=== PATIENT | male | born 1970 | race Caucasian/White ===

== ENCOUNTER 2017-06-18 09:25 | Inpatient (IN) | payer MEDICAID, OTHER ==
[2017-06-18] MEDS: SOD CHLORIDE 0.9% 1,000 ML IV (12:28)
[2017-06-18] MEDS: CEFTRIAXONE 1 GM/50 ML (PMX) 50 ML IVPB ×2 (12:28→16:24)
[2017-06-18 12:45] LABS: ABNORMAL IP MESSAGE 1; HEMATOCRIT 29.8 % (42.0-52.0); HEMOGLOBIN 9.3 g/dl (14.0-18.0); MEAN CORPUSCULAR HEMOGLOBIN 23.4 pg (29.0-33.0); MEAN CORPUSCULAR HGB CONC 31.2 g/dl (32.0-37.0); MEAN CORPUSCULAR VOLUME 74.9 fl (82.0-101.0); MEAN PLATELET VOLUME 9.1 fl (7.4-10.4); PLATELET COUNT 704 10^3/UL (140-415); POSITIVE DIFF @See below; RED BLOOD COUNT 3.98 10^6/ul (4.70-6.10)
[2017-06-18 12:45] LABS: WHITE BLOOD COUNT 25.7 10^3/ul (4.8-10.8)
[2017-06-18] MEDS ORDERED: ACETAMINOPHEN 325 MG TAB PO (13:00)
[2017-06-18] MEDS ORDERED: ONDANSETRON 4 MG INJ IV ×2 (13:00→14:00)
[2017-06-18 13:03] LABS: ADD MAN DIFF? YES; PARTIAL THROMBOPLASTIN TIME 47.4 Sec (25.0-35.0)
[2017-06-18 13:05] LABS: ANION GAP 17 (8-16); BLOOD UREA NITROGEN 12 mg/dl (7-20); CALCIUM 9.6 mg/dl (8.4-10.2); CARBON DIOXIDE 28 mmol/L (21-31); CHLORIDE 96 mmol/L (97-110); CREATININE 0.66 mg/dl (0.61-1.24); GLUCOSE 178 mg/dl (70-220); POTASSIUM 3.9 mmol/L (3.5-5.1); SODIUM 137 mmol/L (135-144)
[2017-06-18 13:06] LABS: LACTIC ACID 1.5 mmol/L (0.5-2.0)
[2017-06-18 13:23] LABS: INR 1.27; PROTIME 16.1 Sec (11.9-14.9); PT RATIO 1.3
[2017-06-18 13:24] LABS: ANISOCYTOSIS 1+ (0-0); BAND NEUTROPHILS #M 0.5 10^3/ul (0.0-0.6); BAND NEUTROPHILS % (M) 2 % (0-4); EOSINOPHILS % (M) 3 % (0-7); GIANT THROMBO% (M) 1 % (0-0); LYMPHOCYTES #M 3.3 10^3/ul (0.8-2.9); LYMPHOCYTES % (M) 13 % (15-51); MICROCYTOSIS 1+ (0-0); MONOCYTE #M 0.7 10^3/ul (0.3-0.9); MONOCYTES % (M) 3 % (0-11); MYELOCYTES #M 0.2 10^3/ul (0.0-0.0); MYELOCYTES % (M) 1 % (0-0); PLATELET ESTIMATE INCREASED; POLYCHROMASIA 1+ (0-0); SEG NEUT #M 20.2 10^3/ul (1.6-7.5); SEGMENTED NEUTROPHILS (M) % 78 % (39-77)
[2017-06-18] MEDS: AZITHROMYCIN 500MG/NS (PMX) 250 ML IVPB ×2 (13:44→16:25)
[2017-06-18] MEDS: SOD CHLORIDE 0.9% 100 ML (14:22)
[2017-06-18] MEDS: IOHEXOL 300MG/ML 150 ML BTL (14:23)
[2017-06-18] MEDS: BARIUM SULF 2% 450 ML BTL (BERRY SMOOTHIE) PO (16:30)
[2017-06-18 17:49] LABS: CARCINOEMBRYONIC ANTIGEN 2.3 ng/ml (0.0-5.0)
[2017-06-18 17:53] LABS: CANCER ANTIGEN 19-9 2.2 U/ml (0.0-37.0)
[2017-06-18] MEDS: GUAIFENESIN 20 MG/ML 5ML CUP PO ×2 (18:02→21:42)
[2017-06-18] MEDS ORDERED: LEVALBUTEROL (NEB) 0.63 MG/3 ML AMP HHN (22:00)
[2017-06-18] MEDS ORDERED: IPRATROPIUM (NEB) 0.5 MG/2.5 ML AMP HHN (22:00)
[2017-06-18] MEDS: LEVALBUTEROL (NEB) 0.63 MG/3 ML AMP HHN (22:03)
[2017-06-18] MEDS: IPRATROPIUM (NEB) 0.5 MG/2.5 ML AMP HHN (22:03)
[2017-06-19 06:24] LABS: ADD MAN DIFF? NO
[2017-06-19 06:32] LABS: WHITE BLOOD COUNT 26.2 10^3/ul (4.8-10.8)
[2017-06-19 06:32] LABS: ABNORMAL IP MESSAGE 1; BASOPHIL # 0.1 10^3/ul (0.0-0.1); BASOPHILS % 0.4 % (0.0-2.0); EOSINOPHILS # 0.6 10^3/ul (0.0-0.5); EOSINOPHILS % 2.3 % (0.0-7.0); HEMATOCRIT 27.7 % (42.0-52.0); HEMOGLOBIN 8.4 g/dl (14.0-18.0); LYMPHOCYTES # 2.4 10^3/ul (0.8-2.9); LYMPHOCYTES % 9.2 % (15.0-51.0); MEAN CORPUSCULAR HEMOGLOBIN 23.1 pg (29.0-33.0); MEAN CORPUSCULAR HGB CONC 30.3 g/dl (32.0-37.0); MEAN CORPUSCULAR VOLUME 76.1 fl (82.0-101.0); MEAN PLATELET VOLUME 9.2 fl (7.4-10.4); MONOCYTE # 1.6 10^3/ul (0.3-0.9); MONOCYTES % 6.2 % (0.0-11.0); NEUTROPHIL # 21.3 10^3/ul (1.6-7.5); NEUTROPHILS % 81.2 % (39.0-77.0); PLATELET COUNT 621 10^3/UL (140-415); POSITIVE DIFF @See below; RED BLOOD COUNT 3.64 10^6/ul (4.70-6.10); RED CELL DISTRIBUTION WIDTH 17.2 % (11.5-14.5)
[2017-06-19 06:44] LABS: INR 1.21; PROTIME 15.5 Sec (11.9-14.9); PT RATIO 1.2
[2017-06-19 06:45] LABS: PARTIAL THROMBOPLASTIN TIME 46.5 Sec (25.0-35.0)
[2017-06-19 06:55] LABS: IRON 22 ug/dl (35-150)
[2017-06-19 07:05] LABS: % IRON SATURATION 10 % SAT (22-52); TOTAL IRON BINDING CAPACITY 217 ug/dl (241-421)
[2017-06-19 08:10] LABS: ANION GAP 15 (8-16); BLOOD UREA NITROGEN 8 mg/dl (7-20); CALCIUM 9.1 mg/dl (8.4-10.2); CARBON DIOXIDE 29 mmol/L (21-31); CHLORIDE 97 mmol/L (97-110); CHOL/HDL RATIO 5.1 RATIO; CHOLESTEROL 114 mg/dl (100-200); CREATININE 0.63 mg/dl (0.61-1.24); GLUCOSE 147 mg/dl (70-220); HDL CHOLESTEROL 22 mg/dl (27-67); LDL CHOLESTEROL,CALCULATED 76 mg/dl; MAGNESIUM 1.9 mg/dl (1.7-2.5); PHOSPHORUS 4.8 mg/dl (2.5-4.9); POTASSIUM 4.4 mmol/L (3.5-5.1); SODIUM 137 mmol/L (135-144); TRIGLYCERIDES 80 mg/dl (0-149)
[2017-06-19 08:54] LABS: ALANINE AMINOTRANSFERASE 30 IU/L (13-69); ALBUMIN 3.4 g/dl (3.3-4.9); ALKALINE PHOSPHATASE 243 IU/L (42-121); ASPARTATE AMINO TRANSFERASE 31 IU/L (15-46); BILIRUBIN,INDIRECT 0.2 mg/dl (0-1.1); BILIRUBIN,TOTAL 0.2 mg/dl (0.2-1.3); TOTAL PROTEIN 8.2 g/dl (6.1-8.1)
[2017-06-19 10:03] LABS: ADD UMIC NO; UR ASCORBIC ACID NEGATIVE (NEGATIVE); UR BILIRUBIN (Dip) NEGATIVE (NEGATIVE); UR BLOOD (Dip) NEGATIVE (NEGATIVE); UR CLARITY CLEAR (CLEAR); UR COLOR YELLOW (YELLOW); UR GLUCOSE (Dip) NEGATIVE (NEGATIVE); UR KETONES (Dip) NEGATIVE (NEGATIVE); UR LEUKOCYTE ESTERASE (Dip) NEGATIVE Leu/ul (NEGATIVE); UR NITRITE (Dip) NEGATIVE (NEGATIVE); UR SPECIFIC GRAVITY (Dip) 1.013 (1.003-1.030); UR TOTAL PROTEIN (Dip) NEGATIVE (NEGATIVE); UR UROBILINOGEN (Dip) 2+ mg/dL (NEGATIVE)
[2017-06-19 10:29] LABS: AMPHETAMINE/METHAMPHETAMINE Positive (NEGATIVE); BARBITURATES Negative (NEGATIVE); BENZODIAZEPINES Negative (NEGATIVE); CANNABINOIDS Negative (NEGATIVE); COCAINE Negative (NEGATIVE); OPIATES Negative (NEGATIVE)
[2017-06-19] MEDS: SOD CHLORIDE 0.9% 100 ML (11:55)
[2017-06-19] MEDS: IOHEXOL 300MG/ML 150 ML BTL (11:55)
[2017-06-19] MEDS: AZITHROMYCIN 500MG/NS (PMX) 250 ML IVPB ×2 (14:00→17:49)
[2017-06-19] MEDS: CEFTRIAXONE 1 GM/50 ML (PMX) 50 ML IVPB (14:04)
[2017-06-19] MEDS: GUAIFENESIN 20 MG/ML 5ML CUP PO ×2 (14:04→17:49)
[2017-06-19] MEDS: SOD FERRIC GLUC COMPLX 125 MG in SOD CHLORIDE 0.9% 100 ML IVPB (17:49)
[2017-06-19] MEDS: ACETAMINOPHEN 325 MG TAB PO (21:20)
[2017-06-20 06:09] LABS: ADD MAN DIFF? NO
[2017-06-20 06:19] LABS: ABNORMAL IP MESSAGE 1; BASOPHIL # 0.1 10^3/ul (0.0-0.1); BASOPHILS % 0.4 % (0.0-2.0); EOSINOPHILS # 0.6 10^3/ul (0.0-0.5); EOSINOPHILS % 2.7 % (0.0-7.0); HEMATOCRIT 27.4 % (42.0-52.0); HEMOGLOBIN 8.4 g/dl (14.0-18.0); LYMPHOCYTES # 2.2 10^3/ul (0.8-2.9); LYMPHOCYTES % 9.1 % (15.0-51.0); MEAN CORPUSCULAR HEMOGLOBIN 23.3 pg (29.0-33.0); MEAN CORPUSCULAR HGB CONC 30.7 g/dl (32.0-37.0); MEAN CORPUSCULAR VOLUME 75.9 fl (82.0-101.0); MONOCYTE # 1.5 10^3/ul (0.3-0.9); MONOCYTES % 6.4 % (0.0-11.0); NEUTROPHIL # 18.9 10^3/ul (1.6-7.5); NEUTROPHILS % 80.5 % (39.0-77.0); PLATELET COUNT 647 10^3/UL (140-415); POSITIVE DIFF @See below; RED BLOOD COUNT 3.61 10^6/ul (4.70-6.10)
[2017-06-20 06:19] LABS: WHITE BLOOD COUNT 23.5 10^3/ul (4.8-10.8)
[2017-06-20 08:11] LABS: ANION GAP 19 (8-16); BLOOD UREA NITROGEN 11 mg/dl (7-20); CALCIUM 9.2 mg/dl (8.4-10.2); CARBON DIOXIDE 29 mmol/L (21-31); CHLORIDE 97 mmol/L (97-110); CREATININE 0.61 mg/dl (0.61-1.24); GLUCOSE 172 mg/dl (70-220); POTASSIUM 4.9 mmol/L (3.5-5.1); SODIUM 140 mmol/L (135-144)
[2017-06-20] MEDS: AZITHROMYCIN 500MG/NS (PMX) 250 ML IVPB (13:55)
[2017-06-20] MEDS: CEFTRIAXONE 1 GM/50 ML (PMX) 50 ML IVPB (13:55)
[2017-06-20] MEDS: SOD FERRIC GLUC COMPLX 125 MG in SOD CHLORIDE 0.9% 100 ML IVPB (17:43)
[2017-06-20] MEDS: ACETAMINOPHEN 325 MG TAB PO (17:47)
[2017-06-21] MEDS: ACETAMINOPHEN 325 MG TAB PO ×2 (02:00→21:35)
[2017-06-21 05:36] LABS: ADD MAN DIFF? NO
[2017-06-21 05:39] LABS: WHITE BLOOD COUNT 25.2 10^3/ul (4.8-10.8)
[2017-06-21 05:39] LABS: ABNORMAL IP MESSAGE 1; BASOPHIL # 0.1 10^3/ul (0.0-0.1); BASOPHILS % 0.5 % (0.0-2.0); EOSINOPHILS # 0.7 10^3/ul (0.0-0.5); EOSINOPHILS % 2.6 % (0.0-7.0); HEMATOCRIT 29.9 % (42.0-52.0); HEMOGLOBIN 9.1 g/dl (14.0-18.0); LYMPHOCYTES # 2.5 10^3/ul (0.8-2.9); LYMPHOCYTES % 9.9 % (15.0-51.0); MEAN CORPUSCULAR HEMOGLOBIN 23.4 pg (29.0-33.0); MEAN CORPUSCULAR HGB CONC 30.4 g/dl (32.0-37.0); MEAN CORPUSCULAR VOLUME 76.9 fl (82.0-101.0); MEAN PLATELET VOLUME 9.1 fl (7.4-10.4); MONOCYTE # 1.2 10^3/ul (0.3-0.9); MONOCYTES % 4.9 % (0.0-11.0); NEUTROPHIL # 20.5 10^3/ul (1.6-7.5); NEUTROPHILS % 81.5 % (39.0-77.0); PLATELET COUNT 689 10^3/UL (140-415); POSITIVE DIFF @See below; RED BLOOD COUNT 3.89 10^6/ul (4.70-6.10); RED CELL DISTRIBUTION WIDTH 17.2 % (11.5-14.5)
[2017-06-21 06:34] LABS: ANION GAP 16 (8-16); BLOOD UREA NITROGEN 10 mg/dl (7-20); CALCIUM 9.3 mg/dl (8.4-10.2); CARBON DIOXIDE 30 mmol/L (21-31); CHLORIDE 98 mmol/L (97-110); CREATININE 0.68 mg/dl (0.61-1.24); GLUCOSE 214 mg/dl (70-220); POTASSIUM 4.7 mmol/L (3.5-5.1); SODIUM 139 mmol/L (135-144)
[2017-06-21] MEDS: LIDOCAINE 1% (MDV) 20 ML INJ (10:35)
[2017-06-21] MEDS: MIDAZOLAM 1 MG/ML 2 ML INJ (10:48)
[2017-06-21] MEDS: SOD CHLORIDE 0.9% 500 ML (10:48)
[2017-06-21] MEDS: FENTAnyl 50 MCG/ML VIAL (10:49)
[2017-06-21] MEDS: CEFTRIAXONE 1 GM/50 ML (PMX) 50 ML IVPB (13:57)
[2017-06-21] MEDS: AZITHROMYCIN 500MG/NS (PMX) 250 ML IVPB (13:57)
[2017-06-21] MEDS: GUAIFENESIN 20 MG/ML 5ML CUP PO (18:27)
[2017-06-21] MEDS: SOD FERRIC GLUC COMPLX 125 MG in SOD CHLORIDE 0.9% 100 ML IVPB (18:27)
[2017-06-22 05:34] LABS: ADD MAN DIFF? NO
[2017-06-22 05:41] LABS: WHITE BLOOD COUNT 25.8 10^3/ul (4.8-10.8)
[2017-06-22 05:41] LABS: ABNORMAL IP MESSAGE 1; BASOPHIL # 0.1 10^3/ul (0.0-0.1); BASOPHILS % 0.4 % (0.0-2.0); EOSINOPHILS # 0.6 10^3/ul (0.0-0.5); EOSINOPHILS % 2.1 % (0.0-7.0); HEMATOCRIT 31.1 % (42.0-52.0); HEMOGLOBIN 9.5 g/dl (14.0-18.0); LYMPHOCYTES # 2.2 10^3/ul (0.8-2.9); LYMPHOCYTES % 8.5 % (15.0-51.0); MEAN CORPUSCULAR HEMOGLOBIN 23.9 pg (29.0-33.0); MEAN CORPUSCULAR HGB CONC 30.5 g/dl (32.0-37.0); MEAN CORPUSCULAR VOLUME 78.1 fl (82.0-101.0); MEAN PLATELET VOLUME 8.9 fl (7.4-10.4); MONOCYTE # 1.5 10^3/ul (0.3-0.9); MONOCYTES % 5.7 % (0.0-11.0); NEUTROPHIL # 21.3 10^3/ul (1.6-7.5); NEUTROPHILS % 82.4 % (39.0-77.0); PLATELET COUNT 730 10^3/UL (140-415); POSITIVE DIFF @See below; RED BLOOD COUNT 3.98 10^6/ul (4.70-6.10); RED CELL DISTRIBUTION WIDTH 17.2 % (11.5-14.5)
[2017-06-22] MEDS ORDERED: DOCUSATE SODIUM 100 MG CAP PO (10:30)
[2017-06-22] MEDS: CEFTRIAXONE 1 GM/50 ML (PMX) 50 ML IVPB (13:35)
[2017-06-22] MEDS: AZITHROMYCIN 500MG/NS (PMX) 250 ML IVPB (14:17)
[2017-06-22] MEDS: ACETAMINOPHEN 325 MG TAB PO (19:31)
[2017-06-22] MEDS: FERROUS SULFATE (EC) 325 MG TAB PO (20:22)
[2017-06-22] MEDS: GUAIFENESIN 20 MG/ML 5ML CUP PO (20:22)
[2017-06-23 05:59] LABS: ADD MAN DIFF? NO
[2017-06-23 06:01] LABS: BASOPHIL # 0.1 10^3/ul (0.0-0.1); BASOPHILS % 0.5 % (0.0-2.0); EOSINOPHILS # 0.4 10^3/ul (0.0-0.5); EOSINOPHILS % 1.9 % (0.0-7.0); HEMATOCRIT 30.8 % (42.0-52.0); HEMOGLOBIN 9.5 g/dl (14.0-18.0); LYMPHOCYTES % 8.8 % (15.0-51.0); MEAN CORPUSCULAR HEMOGLOBIN 23.8 pg (29.0-33.0); MEAN CORPUSCULAR HGB CONC 30.8 g/dl (32.0-37.0); MEAN CORPUSCULAR VOLUME 77.2 fl (82.0-101.0); MEAN PLATELET VOLUME 8.9 fl (7.4-10.4); MONOCYTE # 1.3 10^3/ul (0.3-0.9); NEUTROPHIL # 18.4 10^3/ul (1.6-7.5); NEUTROPHILS % 81.6 % (39.0-77.0); PLATELET COUNT 702 10^3/UL (140-415); RED BLOOD COUNT 3.99 10^6/ul (4.70-6.10); RED CELL DISTRIBUTION WIDTH 17.6 % (11.5-14.5)
[2017-06-23 06:01] LABS: WHITE BLOOD COUNT 22.5 10^3/ul (4.8-10.8)
[2017-06-23 06:37] LABS: ANION GAP 17 (8-16); BLOOD UREA NITROGEN 11 mg/dl (7-20); CALCIUM 9.5 mg/dl (8.4-10.2); CARBON DIOXIDE 27 mmol/L (21-31); CHLORIDE 95 mmol/L (97-110); CREATININE 0.57 mg/dl (0.61-1.24); GLUCOSE 196 mg/dl (70-220); POTASSIUM 4.2 mmol/L (3.5-5.1); SODIUM 135 mmol/L (135-144)
[2017-06-23] MEDS: FERROUS SULFATE (EC) 325 MG TAB PO ×2 (08:34→20:40)
[2017-06-23] MEDS: CEFEPIME 2GM/50 ML (PMX) 50 ML IVPB ×2 (11:51→20:40)
[2017-06-23] MEDS: CLINDAMYCIN 900 MG/D5W (PMX) 50 ML IVPB ×2 (12:00→18:12)
[2017-06-23] MEDS: ACETAMINOPHEN 325 MG TAB PO (18:18)
[2017-06-24] MEDS: CLINDAMYCIN 900 MG/D5W (PMX) 50 ML IVPB ×2 (00:23→05:08)
[2017-06-24] MEDS: ACETAMINOPHEN 325 MG TAB PO (03:52)
[2017-06-24 05:48] LABS: ADD MAN DIFF? NO
[2017-06-24 05:53] LABS: WHITE BLOOD COUNT 23.1 10^3/ul (4.8-10.8)
[2017-06-24 05:53] LABS: BASOPHIL # 0.1 10^3/ul (0.0-0.1); BASOPHILS % 0.4 % (0.0-2.0); EOSINOPHILS # 0.4 10^3/ul (0.0-0.5); EOSINOPHILS % 1.9 % (0.0-7.0); HEMOGLOBIN 8.6 g/dl (14.0-18.0); LYMPHOCYTES # 1.8 10^3/ul (0.8-2.9); LYMPHOCYTES % 7.8 % (15.0-51.0); MEAN CORPUSCULAR HEMOGLOBIN 23.6 pg (29.0-33.0); MEAN CORPUSCULAR HGB CONC 30.7 g/dl (32.0-37.0); MEAN CORPUSCULAR VOLUME 76.9 fl (82.0-101.0); MEAN PLATELET VOLUME 8.7 fl (7.4-10.4); MONOCYTE # 1.4 10^3/ul (0.3-0.9); NEUTROPHIL # 19.1 10^3/ul (1.6-7.5); NEUTROPHILS % 82.6 % (39.0-77.0); PLATELET COUNT 653 10^3/UL (140-415); RED BLOOD COUNT 3.64 10^6/ul (4.70-6.10); RED CELL DISTRIBUTION WIDTH 17.6 % (11.5-14.5)
[2017-06-24 06:14] LABS: ANION GAP 17 (8-16); BLOOD UREA NITROGEN 11 mg/dl (7-20); CALCIUM 9.1 mg/dl (8.4-10.2); CARBON DIOXIDE 27 mmol/L (21-31); CHLORIDE 95 mmol/L (97-110); CREATININE 0.62 mg/dl (0.61-1.24); GLUCOSE 161 mg/dl (70-220); SODIUM 135 mmol/L (135-144)
[2017-06-24] MEDS: FERROUS SULFATE (EC) 325 MG TAB PO (08:59)
[2017-06-24] MEDS: CEFEPIME 2GM/50 ML (PMX) 50 ML IVPB (08:59)
== END 2017-06-24 10:10 | disposition left against medical advice (07) | DRG 194 ==
LOC: MS2 06-22 20:31 → FTE 09:25 → MS2 12:59
PROC: 0WB8XZX Excision of Chest Wall, External Approach, Diagnostic (ICD-10-PCS; principal; 2017-06-21)
DX: J18.9 Pneumonia, unspecified organism (principal); M84.58XA Pathological fracture in neoplastic disease, other specified site, initial encounter for fracture; C79.31 Secondary malignant neoplasm of brain; C79.51 Secondary malignant neoplasm of bone; C34.92 Malignant neoplasm of unspecified part of left bronchus or lung; D50.9 Iron deficiency anemia, unspecified; R59.1 Generalized enlarged lymph nodes; R49.9 Unspecified voice and resonance disorder
CPT/HCPCS: 36415; 70450; 70545; 71045; 71260; 74177; 77012; 78306; 80048; 80061; 80076; 80307; 81003; 82378; 83540; 83605; 83735; 84100; 85025; 85610; 85730; 86301; 86304; 87040; 88104; 88305; 88307; 88313; 88341; 88342; 94664; 96374; 96375; 99285-25; A9503